=== PATIENT | female | born 1985 ===

== ENCOUNTER 2017-05-11 17:42 | Emergency (ER) | payer BC, OTHER ==
[2017-05-11 18:46] VITALS: BP 138/91; PULSE 60; RESP 16; TEMP 97.6; O2SAT 99
--- NOTE | 2017-05-11 19:07 | ED PDOC ---
HPI: CCC, URI, Sore Throat Time Seen by Provider: 05/11/17 18:49 Chief Complaint (Nursing): ENT Problem Chief Complaint (Provider): ear pain Additional Complaint(s): 32-year-old female with no past medical history presents to emergency department with foreign body to left ear for 1 week and a half. Patient was seen last week at urgent care and she states that MD told her that she has cotton in her ear but it was not removed. She was started on Ciprodex drops. Patient then returned to same urgent care center a few days later due to increasing pain and she was told to discontinue the drops and take amoxicillin instead. Patient still has foreign body in her left ear. She denies any active drainage or bleeding. Tylenol and Motrin have not provided adequate pain relief. Patient denies acute hearing loss but has mild muffled hearing. Past Medical History Reviewed: Historical Data, Nursing Documentation, Vital Signs Vital Signs: Last Vital Signs Temp 97.6 F 05/11/17 18:42 Pulse 60 05/11/17 18:42 Resp 16 05/11/17 18:42 BP 138/91 H 05/11/17 18:42 Pulse Ox 99 05/11/17 19:46 - Medical History PMH: No Chronic Diseases - Surgical History Surgical History: No Surg Hx - Family History Family History: States: No Known Family Hx - Living Arrangements Living Arrangements: With Family - Social History Current smoker - smoking cessation education provided: No Alcohol: Social Drugs: Denies - Home Medications Home Medications: Ambulatory Orders Medication Instructions Recorded Amoxicillin/Clavulanate [Augmentin 1 tab PO BID #14 tab 05/11/17 875 MG-125 MG] traMADol [Ultram] 50 mg PO TID PRN #15 tab 05/11/17 - Allergies Allergies/Adverse Reactions: Allergies Allergy/AdvReac Type Severity Reaction Status Date / Time No Known Allergies Allergy Verified 05/11/17 18:41 Review of Systems ROS Statement: Except As Marked, All Systems Reviewed And Found Negative Constitutional: Negative for: Fever ENT: Positive for: Other (left ear pain, FB left ear) Neurological: Negative for: Headache, Dizziness Physical Exam - Reviewed Nursing Documentation Reviewed: Yes Vital Signs Reviewed: Yes - Physical Exam Appears: Positive for: Well, Non-toxic, No Acute Distress Skin: Negative for: Rash Eye Exam: Positive for: Normal appearance ENT: Positive for: Other (Right ear wnl, Left ear: moderate purulent discharge noted to left AC, suspect small piece fo cotton, no active bleeding, mild pain on tugging of external ear, no mastoid tenderness bilaterally) Cardiovascular/Chest: Positive for: Regular Rate, Rhythm Respiratory: Positive for: Normal Breath Sounds Neurologic/Psych: Positive for: Alert, Oriented - Laboratory Results Urine POC: Negative - ECG O2 Sat by Pulse Oximetry: 99 Pulse Ox Interpretation: Normal Medical Decision Making Medical Decision Makin32 year old with left ear pain and possible FB. Plan: test PO motrin and tramadol Procedure Note: Using alligator forceps, science writer attempted to remove cotton but was unable to. Excess amount of purulent discharge was removed from left auditory canal. Piece of cotton deep in auditory canal could not be removed, patient was unable to tolerate procedure any further due to pain. No acute complications. Patient was referred to ear, nose and throat specialist. She was given prescriptions for Augmentin and tramadol. Patient was advised to resume use of Ciprodex drops which she already has at home. She was instructed to apply 4 drops twice a day to the left ear. Patient was advised to contact specialist first thing in the morning to arrange for follow-up with ENT. Disposition - Clinical Impression Clinical Impression: Serous otitis media, Otitis externa - Patient ED Disposition Is Patient to be Admitted: No Counseled Patient/Family Regarding: Diagnosis, Need For Followup, Rx Given - Disposition Referrals: Ugo Madrid MD [Staff Provider] - Disposition: Routine/Home Disposition Time: 20:18 Condition: STABLE Additional Instructions: Continue with ibuprofen for pain and take this along with prescription pain medication. Resume use of eardrops, apply 4 drops twice a day for 5-7 days. Take new prescription of antibiotic as directed. Follow up as soon as possible with ear, nose and throat specialist. Prescriptions: Amoxicillin/Clavulanate [Augmentin 875 MG-125 MG] 1 tab PO BID #14 tab traMADol [Ultram] 50 mg PO TID PRN #15 tab PRN Reason: Pain, Moderate (4-7) Instructions: Serous Otitis Media (ED), Otitis Externa (ED) Forms: [employer] ([place]ic)
[2017-05-11] MEDS ORDERED: Amoxicillin-Clav 875-125 mg Tab PO STA (20:16)
[2017-05-11] MEDS ORDERED: Amoxicillin-Clav 875-125 mg Tab PO ONE (20:27)
== END 2017-05-11 20:30 | disposition home or self-care (01) ==
LOC: H.ER 17:42
DX: H65.90 Unspecified nonsuppurative otitis media, unspecified ear (principal)